=== PATIENT | male | born 1940 | race Caucasian/White ===

== ENCOUNTER → 2017-02-08 | Outpatient (CLI) | payer OTHER | END | disposition home or self-care (01) | LOC: ROC 02-03 10:49 | PROVIDERS: ATTEND Radiology Radiation Oncology | DX: E11.9 Type 2 diabetes mellitus without complications (principal); E78.5 Hyperlipidemia, unspecified; I10 Essential (primary) hypertension; D64.9 Anemia, unspecified; Z92.3 Personal history of irradiation | CPT/HCPCS: 99214; G0463 ==

== ENCOUNTER → 2017-04-17 | Outpatient (CLI) | payer OTHER | END | disposition home or self-care (01) | LOC: ROC 09:05 | PROVIDERS: ATTEND Radiology Radiation Oncology | DX: Z08 Encounter for follow-up examination after completed treatment for malignant neoplasm (principal); C84.A1 Cutaneous T-cell lymphoma, unspecified lymph nodes of head, face, and neck | CPT/HCPCS: 99213; G0463 ==